=== PATIENT | male | born 1965 | race Two or more races ===

== ENCOUNTER 2019-10-08 21:11 | Inpatient (IN) | payer BC, MEDICAID ==
[~2019-10-08] VITALS: Ht 180.3 cm; Wt 99.8 kg
[2019-10-08 22:28] LABS: BASOPHILS % 0.4 % (0.0-2.0); HEMATOCRIT. 43.2 % (42.0-52.0); LYMPHOCYTES % 39.4 % (20.0-50.0); MEAN CORPUSCULAR HEMOGLOBIN 32.9 pg (28.0-32.0); MEAN CORPUSCULAR VOLUME 94.6 fL (80.0-94.0); MEAN PLATELET VOLUME 9.1 fl (7.4-10.4); MONOCYTES % 7.5 % (2.0-8.0); NEUTROPHILS % 51.7 % (40.0-76.0); PLATELET 191 x1000/uL (130-400); RED BLOOD CELL COUNT 4.57 mill/uL (4.7-6.1); RED CELL DISTRIBUTION WIDTH 13.4 % (11.6-14.6)
[2019-10-08 22:34] LABS: PROTHROMBIN TIME 10.5 sec (9.6-11.0)
[2019-10-08 22:35] LABS: CHLORIDE 107 mEq/L (98-107)
[2019-10-08 22:39] LABS: ETHANOL BLOOD < 10 mg/dL
[2019-10-08 22:43] LABS: LDL CHOLESTEROL 130 mg/dL (5-100)
[2019-10-08] MEDS ORDERED: CLOPIDOGREL 75MG TABLET PO ONE (23:15)
[2019-10-08] MEDS ORDERED: DIPHENHYDRAMINE 50MG/ML VIAL IV ONE (23:15)
[2019-10-08] MEDS ORDERED: ASPIRIN 81MG TABLET PO ONE (23:15)
[2019-10-08] MEDS ORDERED: PROCHLORPERAZINE 10MG/2ML VIAL IV ONE (23:15)
[2019-10-09 10:00] VITALS: BP 142/92
[2019-10-09] MEDS ORDERED: ATOR10TA69 PO (10:03)
[2019-10-09 12:00] VITALS: BP 147/89
[2019-10-09 12:15] LABS: HEMATOCRIT 42.1 % (42.0-52.0); MEAN CORPUSCULAR HEMOGLOBIN 33.8 pg (28.0-32.0); MEAN CORPUSCULAR VOLUME 94.6 fL (80.0-94.0); PLATELET 178 x1000/uL (130-400); RED BLOOD CELL COUNT 4.44 mill/uL (4.7-6.1); RED CELL DISTRIBUTION WIDTH 12.9 % (11.6-14.6)
[2019-10-09 12:23] LABS: CHLORIDE 107 mEq/L (98-107)
[2019-10-09] MEDS: DILTIAZEM HCL 30MG TABLET PO SCH ×2 (14:46→21:57)
[2019-10-09 16:00] VITALS: BP 143/89
[2019-10-09] MEDS: ATORVASTATIN CALCIUM 10MG TABLET PO SCH (18:14)
[2019-10-09 20:16] VITALS: BP 134/95
[2019-10-09] MEDS ORDERED: ATORVASTATIN CALCIUM 40MG TABLET PO SCH (21:00)
[2019-10-10] VITALS: BP 131/87
[2019-10-10 04:00] VITALS: BP 120/81
[2019-10-10] MEDS: DILTIAZEM HCL 30MG TABLET PO SCH (06:16)
[2019-10-10 08:23] VITALS: BP 130/78
[2019-10-10] MEDS: ATORVASTATIN CALCIUM 10MG TABLET PO SCH (09:07)
[2019-10-10] MEDS ORDERED: CLOPIDOGREL 75MG TABLET PO SCH (11:00)
[2019-10-10] MEDS ORDERED: ASPIRIN 81MG EC TABLET PO SCH (11:00)
[2019-10-10 11:42] VITALS: BP 132/88
[2019-10-10] MEDS ORDERED: DILTIAZEM HCL 120MG CAPSULE CD 24HR PO SCH (12:00)
[2019-10-10] MEDS ORDERED: DILT120C88 PO (12:27)
[2019-10-10] MEDS ORDERED: ASPI-1158 PO (12:31)
[2019-10-10 13:15] VITALS: BP 132/88
== END 2019-10-10 14:30 | disposition home or self-care (01) | DRG 47 ==
LOC: ER 21:11 → 6WST 23:35 → EDBEDREQ 23:38 → EDBEDREQTM 23:38 → EDBEDREQSVC 23:38 → ENRESERV 10-09 07:45
PROVIDERS: ADMIT Family Medicine; ATTEND Family Medicine
DX: G45.9 Transient cerebral ischemic attack, unspecified (principal); E66.9 Obesity, unspecified; I10 Essential (primary) hypertension; E78.5 Hyperlipidemia, unspecified; E78.00 Pure hypercholesterolemia, unspecified; J45.909 Unspecified asthma, uncomplicated; Z68.30 Body mass index [BMI] 30.0-30.9, adult; Z82.3 Family history of stroke; Z79.899 Other long term (current) drug therapy
CPT/HCPCS: 36415; 70551; 71045; 80048; 80053; 80061; 80320; 82962; 83721; 84484; 85025; 85027; 93005; 93306; 93880; 99291; J0780; G0480